=== PATIENT | male | born 1985 | race Caucasian/White ===

== ENCOUNTER 2019-05-07 01:09 | Emergency (ER) | payer SELFPAY ==
[~2019-05-07] VITALS: Ht 165.1 cm; Wt 56.7 kg
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
--- OUTSIDE RECORDS SUMMARY | 2019-05-07 01:12 | XMS REPORT ---
Author Author [facility] Address Unknown Phone Unavailable Care Team Providers Care Nurse Practitioner Hospitalist Name Role Phone Unavailable Unavailable Problems This patient has no known problems. Allergies, Adverse Reactions, Alerts This patient has no known allergies or adverse reactions. Medications This patient has no known medications. Encounters Start Date/Time End Date/Time Encounter Type Admission Type Attending [facility] Care Department Encounter ID 2018-11-18 00:00:00 2018-11-18 00:00:00 Outpatient [facility] [id number] 2018-11-17 00:00:00 2018-11-17 00:00:00 Outpatient [facility] [id number] 2018-10-21 00:00:00 2018-10-21 00:00:00 Outpatient [facility] [id number] 2018-10-14 00:00:00 2018-10-14 00:00:00 Outpatient [facility] [id number] 2018-09-21 00:00:00 2018-09-21 00:00:00 Outpatient [facility] [id number] 2018-09-05 13:12:49 2018-09-05 13:12:49 Outpatient [facility] [id number] 2018-09-02 10:52:23 2018-09-02 10:52:23 Outpatient [facility] [id number] 2018-08-26 09:51:33 2018-08-26 09:51:33 Outpatient [facility] [id number] 2018-08-26 00:00:00 2018-08-26 00:00:00 Outpatient [facility] [id number]
[2019-05-07 01:30] LABS: AMPHETAMINES SCREEN,URINE NEGATIVE (NEGATIVE); BENZODIAZEPINES SCREEN,URINE NEGATIVE (NEGATIVE); PHENCYCLIDINE SCREEN,URINE NEGATIVE (NEGATIVE)
[2019-05-07 01:48] VITALS: BP 163/115
== END 2019-05-07 02:01 | disposition home or self-care (01) ==
LOC: ER 01:09
DX: F10.229 Alcohol dependence with intoxication, unspecified (principal); F17.210 Nicotine dependence, cigarettes, uncomplicated
CPT/HCPCS: 80307; 99283

== ENCOUNTER 2020-10-03 00:20 | Emergency (ER) | payer SELFPAY ==
[~2020-10-03] VITALS: Ht 175.3 cm; Wt 63.5 kg
[2020-10-03] MEDS ORDERED: ACETAMINOPHEN500 MG PO (00:41)
[2020-10-03] MEDS ORDERED: CLINDAMYCIN HC300 MG PO (00:41)
[2020-10-03] MEDS ORDERED: DOXYCYCLINE HY100 MG PO (00:41)
[2020-10-03] MEDS ORDERED: IBUPROFEN IB200 MG PO (00:41)
[2020-10-03] MEDS ORDERED: LIDOCAINE HCL 1% LOCAL INJ 20 ML VIAL ONE (01:30)
== END 2020-10-03 01:24 | disposition home or self-care (01) ==
LOC: FSED 00:27
DX: L02.411 Cutaneous abscess of right axilla (principal); L03.111 Cellulitis of right axilla; I10 Essential (primary) hypertension
CPT/HCPCS: 10061; 99283; J2001

== ENCOUNTER 2021-03-01 18:58 | Emergency (ER) | payer BC ==
[~2021-03-01] VITALS: Ht 175.3 cm; Wt 68.0 kg
[~2021-03-01 18:58] MED LIST: ACETAMINOPHEN500 MG PO; CLINDAMYCIN HC300 MG PO; DOXYCYCLINE HY100 MG PO; IBUPROFEN IB200 MG PO
== END 2021-03-01 19:20 | disposition home or self-care (01) ==
LOC: ER 19:04
DX: K64.4 Residual hemorrhoidal skin tags (principal); I10 Essential (primary) hypertension; F17.210 Nicotine dependence, cigarettes, uncomplicated
CPT/HCPCS: 99282